=== PATIENT | female | born 1960 | race Hispanic/Latino ===

== ENCOUNTER 2016-10-16 09:40 | Outpatient (CLI) | payer MEDICARE ==
--- NOTE | 2016-10-16 15:39 | Mammography Report ---
BILATERAL DIGITAL SCREENING MAMMOGRAM with CAD: 10/16/16 09:40:00 CLINICAL: Routine screening. COMPARISON:06/10/15 FINDINGS: The breasts are heterogeneously dense, which may obscure small masses.Positioning of the left breast is less than optimal due to a previous stroke. No mass, architectural distortion or suspicious calcifications. IMPRESSION: No mammographic evidence of malignancy. BI-RADS CATEGORY: 1 - - Negative RECOMMENDATION: Routine mammographic screening in one year. COMMENT: Patient follow-up letters are generated by our [employer] application. The
== END 2016-10-16 09:41 | disposition home or self-care (01) ==
LOC: SPVWC 09:40
PROVIDERS: ATTEND Internal Medicine
DX: Z12.31 Encounter for screening mammogram for malignant neoplasm of breast (principal)
CPT/HCPCS: 77067; G0202

== ENCOUNTER 2017-11-05 10:12 | Outpatient (CLI) | payer MEDICARE ==
--- NOTE | 2017-11-05 14:32 | Mammography Report ---
BILATERAL DIGITAL SCREENING MAMMOGRAM with CAD: 11/05/17 10:12:00 CLINICAL: Routine screening. COMPARISON:10/16/16 FINDINGS: The breasts are heterogeneously dense, which may obscure small masses. No mass, architectural distortion or suspicious calcifications. IMPRESSION: No mammographic evidence of malignancy. BI-RADS CATEGORY: 1 - - Negative RECOMMENDATION: Routine mammographic screening in one year. COMMENT: Patient follow-up letters are generated by our [email or web address] application.
== END 2017-11-05 10:13 | disposition home or self-care (01) ==
LOC: SPVWC 10:12
PROVIDERS: ATTEND Obstetrics & Gynecology
DX: Z12.31 Encounter for screening mammogram for malignant neoplasm of breast (principal)
CPT/HCPCS: 77067

== ENCOUNTER 2018-11-07 11:05 | Outpatient (CLI) | payer MEDICARE ==
--- NOTE | 2018-11-07 14:14 | Mammography Report ---
BILATERAL DIGITAL SCREENING MAMMOGRAM with CAD: 11/07/18 11:05:00 CLINICAL: Routine screening. COMPARISON:11/05/17 FINDINGS: The breasts are heterogeneously dense, which may obscure small masses. No mass, architectural distortion or suspicious calcifications. IMPRESSION: No mammographic evidence of malignancy. BI-RADS CATEGORY: 1 - - Negative RECOMMENDATION: Routine mammographic screening in one year. COMMENT: Patient follow-up letters are generated by our [email or web address] application.
== END 2018-11-07 11:06 | disposition home or self-care (01) ==
LOC: SPVWC 11:05
PROVIDERS: ATTEND Obstetrics & Gynecology
DX: Z12.31 Encounter for screening mammogram for malignant neoplasm of breast (principal)
CPT/HCPCS: 77067

== ENCOUNTER 2020-03-13 12:30 | Outpatient (CLI) | payer MEDICARE ==
--- NOTE | 2020-03-13 14:53 | Mammography Report ---
DIGITAL SCREENING MAMMOGRAM WITH CAD, 03/13/2020 INDICATION: Routine screening mammography. SCREENING MAMMOGRAM TECHNIQUE: Digital bilateral 2D mammography was obtained in the craniocaudal and mediolateral obliq ue projections. This examination was interpreted with the benefit of Computer-Aided Detection analysi s. COMPARISON: 10/16/2016 FINDINGS: Breast Density: There are scattered areas of fibroglandular density. There is no evidence of dominant mass, suspicious calcifications or architectural distortion in eithe r breast. IMPRESSION: No evidence of malignancy Follow up recommendation: Routine yearly BI-RADS Category 1: Negative. A "normal" or negative report should not discourage follow up or biopsy of a clinically significant f inding. A written summary of these findings will be mailed to the patient. The patient will be entered into a mammography reporting system which will generate a reminder letter for the patient's next appointmen t at the appropriate interval. The [employer] recommends yearly mammograms starting at age 40 and continuing as l riley as a woman is in good health. Breast MRI is recommended for women with an approximate 20-25% or greater lifetime risk of breast cancer, including women with a strong family history of breast or ova loreto cancer or who have been treated for Hodgkin's disease. Signer Name: Jesse Young MD Signed: 03/13/2020 2:48 PM Workstation Name: [id number]
== END 2020-03-13 12:31 | disposition home or self-care (01) ==
LOC: SPVWC 12:30
PROVIDERS: ATTEND Obstetrics & Gynecology
DX: Z12.31 Encounter for screening mammogram for malignant neoplasm of breast (principal); N64.89 Other specified disorders of breast
CPT/HCPCS: 77067

== ENCOUNTER 2021-03-14 10:53 | Outpatient (CLI) | payer MEDICARE ==
--- NOTE | 2021-03-14 17:01 | Mammography Report ---
DIGITAL SCREENING MAMMOGRAM WITH CAD, 03/14/2021 CLINICAL INFORMATION / INDICATION: Routine screening mammography. TECHNIQUE: Digital bilateral 2D mammography was obtained in the craniocaudal and mediolateral obliqu e projections. This examination was interpreted with the benefit of Computer-Aided Detection analysis . COMPARISON: Prior mammogram 03/13/2020 and 03/07/2019 FINDINGS: Breast Density: There are scattered areas of fibroglandular density. No dominant mass, suspicious calcifications, or architectural distortion in either breast. There has been no significant change compared with the prior examinations. IMPRESSION: No mammographic evidence of malignancy. Follow up recommendation: Routine yearly BI-RADS Category 1: Negative. A "normal" or negative report should not discourage follow up or biopsy of a clinically significant f inding. A written summary of these findings will be mailed to the patient. The patient will be entered into a mammography reporting system which will generate a reminder letter for the patient's next appointmen t at the appropriate interval. The [employer] recommends yearly mammograms starting at age 40 and continuing as l riley as a woman is in good health. Breast MRI is recommended for women with an approximate 20-25% or greater lifetime risk of breast cancer, including women with a strong family history of breast or ova loreto cancer or who have been treated for Hodgkin's disease. Signer Name: Loretta Medina MD Signed: 03/14/2021 4:56 PM Workstation Name: [id number]
== END 2021-03-14 10:54 | disposition home or self-care (01) ==
LOC: SPVWC 10:53
PROVIDERS: ATTEND Obstetrics & Gynecology
DX: Z12.31 Encounter for screening mammogram for malignant neoplasm of breast (principal); N64.89 Other specified disorders of breast
CPT/HCPCS: 77067

== ENCOUNTER 2022-04-08 09:47 | Outpatient (CLI) | payer MEDICARE ==
--- NOTE | 2022-04-09 17:28 | Mammography Report ---
DIGITAL SCREENING MAMMOGRAM WITH CAD, 04/08/2022 CLINICAL INFORMATION / INDICATION: Routine screening mammography. TECHNIQUE: Digital bilateral 2D mammography was obtained in the craniocaudal and mediolateral oblique projections. This examination was interpreted with the benefit of Computer-Aided Detection analysis. COMPARISON: 11/05/2017 through 03/14/2021. 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 Breast Density: There are scattered areas of fibroglandular density. No dominant mass, suspicious calcifications, or architectural distortion in either breast. Asymmetric breast tissue in the left upper outer quadrant has not changed significantly. IMPRESSION: No mammographic evidence of malignancy. Follow up recommendation: Routine yearly screening mammogram. BI-RADS Category 2: BENIGN. A "normal" or negative report should not discourage follow up or biopsy of a clinically significant f inding. A written summary of these findings will be mailed to the patient. The patient will be entered into a mammography reporting system which will generate a reminder letter for the patient's next appointmen t at the appropriate interval. The [employer] recommends yearly mammograms starting at age 40 and continuing as l riley as a woman is in good health. Breast MRI is recommended for women with an approximate 20-25% or greater lifetime risk of breast cancer, including women with a strong family history of breast or ova loreto cancer or who have been treated for Hodgkin's disease. Signer Name: Prudencio Qureshi MD Signed: 04/09/2022 5:23 PM Workstation Name: [id number]
== END 2022-04-08 09:48 | disposition home or self-care (01) ==
LOC: SPVWC 09:47
PROVIDERS: ATTEND Obstetrics & Gynecology
DX: Z12.31 Encounter for screening mammogram for malignant neoplasm of breast (principal)
CPT/HCPCS: 77067